=== PATIENT | male | born 1945 | race Caucasian/White ===

== ENCOUNTER 2019-03-24 15:27 | Emergency (ER) | payer OTHER ==
[~2019-03-24] VITALS: Ht 180.3 cm; Wt 90.7 kg
[2019-03-24 15:49] LABS: HEMOGLOBIN 11.1 gm/dL (14.0-18.0); MCH 32.5 pg (26.0-34.0); MCHC 34.9 g/dL (28.0-37.0); MCV 93.3 fL (80.0-100.0); RBC 3.43 mil/uL (4.50-6.00); RDW 15.5 % (10.5-14.5); WBC 9.5 thou/uL (4.0-11.0)
[2019-03-24 15:59] LABS: ANION GAP 8 mmol/L (7-16); BUN 23 mg/dL (7-18); CALCIUM 9.3 mg/dL (8.5-10.1); CHLORIDE 105 mmol/L (98-107); CO2 28 mmol/L (21-32); CREATININE 1.5 mg/dL (0.7-1.3); GLUCOSE 110 mg/dL (74-106); POTASSIUM 4.4 mmol/L (3.5-5.1); SODIUM 141 mmol/L (136-145)
[2019-03-24 16:08] LABS: TROPONIN-I <0.06 ng/mL (<0.06)
[2019-03-24] MEDS ORDERED: PEPCID40 MG PO (17:01)
[2019-03-24] MEDS ORDERED: SORINE 80 MG TA80 M1 PO (17:02)
[2019-03-24] MEDS ORDERED: COZAAR 25 MG TA25 M2 PO (17:02)
[2019-03-24] MEDS ORDERED: FLOMAX0.4 MG PO (17:02)
[2019-03-24] MEDS ORDERED: NOVOLOG100 UNIT/1 SUBQ (17:03)
[2019-03-24] MEDS ORDERED: LANTUS SUBQ (17:03)
[2019-03-24 17:44] VITALS: BP 163/60
[2019-03-24 18:48] LABS: URINE BILIRUBIN NEGATIVE (Negative); URINE BLOOD NEGATIVE (Negative); URINE CLARITY CLEAR; URINE COLOR YELLOW; URINE GLUCOSE-RANDOM* NEGATIVE (Negative); URINE KETONES NEGATIVE (Negative); URINE LEUKOCYTES-REFLEX TRACE (Negative); URINE NITRITE-REFLEX NEGATIVE (Negative); URINE PROTEIN (DIPSTICK) TRACE (Negative); URINE UROBILINOGEN 0.2 E.U./dl (0.2-1.0)
--- NOTE | 2019-03-25 09:13 | EKG ---
[address] [place] [address] ELECTROCARDIOGRAM REPORT Name: JONA MICHELLE Room #: [facility]ITAL[facility] [id number] ������������������ Admission: 03/24/19 ������������������ Attend Phys: Discharge: 03/24/19 ������������������ Date of : 41 Report #: [id number] ����������������������������������������������������������������� [id number] THIS REPORT FOR: //name// Formerly [facility] ED Test Date: 2019-03-24 Test Time: 15:40:03 Pat Name: JONA MICHELLE Department: Room: Gender: [facility] Director: [facility] : 1945 Requested By: Robert Mcmillan Order Number: [id number] MD: Mike Malone Measurements Intervals [place] Rate: 51 P: 72 DC: 206 QRS: -49 QRSD: 127 T: 45 QT: 496 QTc: 457 Interpretive Statements Sinus rhythm Left bundle branch block No previous ECG available for comparison Electronically Signed On 03-25-2019 9:13:27 CDT by Mike Malone [email or web address] ��������������������������������������������� <ELECTRONICALLY SIGNED> ���������������������������������������� By: Mike Malone MD, [facility] ��������������������������������������������� 03/25/19 0913 1540 1540 Mike Malone MD, FACC /EPI
== END 2019-03-24 17:46 | disposition home or self-care (01) ==
LOC: ER 15:27
PROVIDERS: Emergency Medicine
DX: E11.649 Type 2 diabetes mellitus with hypoglycemia without coma (principal); Z79.4 Long term (current) use of insulin